=== PATIENT | female | born 1975 | race Caucasian/White ===

== ENCOUNTER 2023-07-18 00:36 | Emergency (ER) | payer OTHER, SELFPAY ==
[2023-07-18 00:40] VITALS: BP 117/84
--- NOTE | 2023-07-18 00:57 | ED.GENMED ---
History of Present Illness
General
Chief Complaint: Heart Rate Problem
Source: patient
Exam Limitations: none
Time Seen by Provider: 07/18/23 00:47
Travel History
Have you had any contact with someone who has COVID-19?: No
Do you have any symptoms of coronavirus? Fever > 100 degrees, chills, cough, shortness of breath, sore throat, loss of taste or smell, muscle aches, or headache?: No
History of Present Illness
History of Present Illness:
This is a 48 year old female that comes in with c/o feeling like her heart fluttering. State that at 10:30pm she laid down in bed. State that she felt like her heart was fluttering and she feels it just has not felt right since. State that she feels
like it is beating hard and her chest is vibrating. States that she did have a migraine earlier today and she took Excedrin. Denies any fever, chills, chest pain, SOB, abd pain, nausea, vomiting, diarrhea, headache now, dizziness, urinary burning.
Past History
Past History
ED Past Medical History: Psychiatric (Anxiety, Depression, ) and Other (thoracic aortic aneurysm, Migraines, )
ED Past Surgical History: Gynecological (Tubal ligation) and Other (Eye surgery, wisdom teeth removal)
Social History
Tobacco: Former smoker
Alcohol: Occasional
Drug: None
Personal:
Living: with family
Employment: Employed
Review of Systems
Review of Systems
All Other Systems: ROS reviewed and negative except as documented in HPI and ROS
Constitutional: Reports no symptoms; Denies fever or chills
EENT: Reports no symptoms
Respiratory: Denies cough or trouble breathing
Cardiac: Reports other (Feeling like her heart was fluttering and beating heavy); Denies chest pain
ABD/GI: Reports no symptoms; Denies abdominal pain, nausea, vomiting or diarrhea
: Reports no symptoms
Musculoskeletal: Reports no symptoms
Skin: Reports no symptoms
Neurological: Reports no symptoms; Denies dizzy or headache
Psychiatric: Reports no symptoms
Phy Exam
General Physical Exam
General Presentation: well appearing and no apparent distress
General age: appears stated age
General Skin: warm and dry
General Habitus: normal
General Mental: alert
General Hydration: dry mucous membranes
ENT Exam
ENT Exam: TM's normal, pharynx normal and neck supple
Eye Exam
Eye Exam: EOMI
Cardiovascular Exam
Cardiovascular Exam: no edema, normal peripheral pulses and tachycardia
Pulmonary Exam
Pulmonary Exam: lungs clear, no respiratory distress, no rales, chest non tender, no crackles, no rhonchi, no wheezing and no cough
Gastrointestinal Exam
Gastrointestinal Exam: normal bowel sounds, non tender, soft, no organomegaly, no pulsatile mass and non distended
Musculoskeletal Exam
Musculoskeletal Exam: full ROM and no edema
Skin Exam
Skin Exam: normal color, warm/dry, no rash and no petechia
Psychiatric Exam
Psychiatric Exam: normal mood/affect
Course
Orders/Labs/Results
Orders:
Orders
07/18/23 00:48
Electrocardiogram (*1) Urgent
Reason for Study: Tachycardia
EKG- Treatment ONCE
07/18/23 00:56
0.9% Sodium Chloride 500 ml [Nss] 500 ml IV BOLUS
07/18/23 01:03
Complete Blood Count/With Diff Urgent
Comprehensive Metabolic Panel Urgent
TSH Reflex To Free T4 Urgent
Troponin I Urgent
Abnormal Lab Results
07/18/23
01:03
WBC 13.9 H 10^3/uL
(4.8-10.8)
MCV 79.6 L fL
(81.0-99.0)
Potassium 3.2 L mmol/L
(3.5-5.1)
Glucose 104 H mg/dl
(70-99)
ALT 43 H U/L
(0-35)
07/18/23 01:03
07/18/23 01:03
Leukocytosis, Hypokalemia, Glucose nonfasting. ALT mildly elevated. Troponin <0.012. TSH normal at 4.50
Vital Signs
Initial and Last Documented VS:
Initial Vital Signs
Temp Pulse Resp BP Pulse Ox
97.6 F 123 18 117/84 98
07/18/23 00:40 07/18/23 00:40 07/18/23 00:40 07/18/23 00:40 07/18/23 00:40
Last Documented Vital Signs
Temp Pulse Resp BP Pulse Ox
97.6 F 100 23 101/77 97
07/18/23 00:40 07/18/23 01:45 07/18/23 01:45 07/18/23 01:43 07/18/23 01:45
MDM/Problems Addressed
Differential Diagnosis Includes:
Tachycardia, Atrial fib/flutter,
MDM/Problems Addressed:
This is a 48 year old female that comes in with c/o feeling like her heart was beating hard and fluttering. States that this started at 10:30pm when she went to lay down. States that her heart has just not felt right since this happened.
Will check labs, ECG and given IV fluids.
Back into see patient. Patient states that she is feeling better. Explained that her Troponin is normal and that her WBC are slightly elevated. This can happen with anxiety. Patient ALT is also slightly elevated. Patient to increase her water intake
to 8-8oz glasses daily. Follow up with the family doctor for further evaluation. Explained that they may want her to wear a Holter Monitor. TSH is pending. Will discharge patient home.
Chronic conditions affecting care:
NA
Acute Exacerbation and/or Progression of Chronic Illness:
NA
*Pulse Oximetry
Patient hypoxic: no
*EKG
Interpreted by ED Provider?: Yes
Heart Rate: 106
Rate: tachycardiac
Rhythm: sinus
[place]: normal axis
Interval: normal interval
QRS Pattern: normal QRS
Ischemia: non-specific ST changes (V2, V3, V4, V5, )
*Robotics Engineer Interpretation
Rate: tachycardiac
Heart Rate: 108
Rhythm: sinus tachycardia
*Critical Care Note
Total Time (30-74mins, 75-104mins- exclusive of procedures): Not Applicable
ED Attending Note
-
Portions of this chart may have been created with voice recognition software.� Occasional wrong word or��sound alike� substitutions may have occurred due to the inherent limitations of voice recognition software.
Discharge Plan
Departure
Patient Disposition: Home (Routine Discharge)
Date of Disposition: 07/18/23
Time of Disposition: 01:53
Patient with high blood pressure during this ER visit?: No
Condition: Good
Covid-19: Not Applicable
Discharge Problem:
Tachycardia
Instructions: Sinus Tachycardia (DC)
Prescriptions:
No Action
hydrochlorothiazide 50 mg Tablet
50 mg PO DAILY
irbesartan 150 mg Tablet
150 mg PO DAILY
cholecalciferol (vitamin D3) 50 mcg (2,000 unit) Tablet
50 mcg PO DAILY
Centrum Silver Women 8 mg iron-400 mcg-50 mcg Tablet
1 tab PO DAILY
Activity Restrictions/Additional Instructions:
As discussed, your blood work shows that your WBC's are slightly elevated. This can happen with Stress. Your one liver enzymes is slightly elevated and your Troponin is normal. Thyroid functions have also been done but these results are not back.
Please increase your water intake to 8-8oz glasses daily. Follow up with the family doctor as they may wish to have you wear a Holter Monitor. IF YOU HAVE CHEST PAIN, INCREASED HEART RATE OR YOU HAVE ANY OTHER CONCERNS PLEASE RETURN TO THE EMERGENCY
ROOM.
Interventions
Interventions:
*Risk Screen - Suicide Last Done: 07/18/23 01:02
*General Assessment Last Done: 07/18/23 01:02
*Neglect/Abuse Screening Last Done: 07/18/23 01:02
*ED COVID-19 Vaccine History Last Done: 07/18/23 01:02
ED- Cardiac Assessment Last Done: 07/18/23 01:02
ED- Pulmonary Assessment Last Done: 07/18/23 01:02
Discharge Date and Time
Print Language: SLOVAK
[2023-07-18 01:02] VITALS: BMI 31.3
[2023-07-18] MEDS: NSS 500 IV (01:08)
[2023-07-18 01:10] LABS: % Basophils 0.6 % (0-2); % Eosinophils 4.1 % (0-6); % Immature Granulocytes 0.8 % (0-0.5); % Monocytes 7.6 % (1.7-9.3); % Neutrophils 49.9 % (42.2-75.2); Absolute Basophils 0.1 10^3/uL (0-0.2); Absolute Eosinophils 0.6 10^3/uL (0-0.7); Absolute Immature Granulocytes 0.1 10^3/uL (0-0.05); Absolute Lymphocytes 5.2 10^3/uL (1.2-3.4); Absolute Monocytes 1.1 10^3/uL (0.1-0.6); Absolute Neutrophils 6.9 10^3/uL (1.4-6.5); Hematocrit 37.8 % (37.0-47.0); Hemoglobin 13.8 g/dL (12.0-16.0); Mean Corp Hgb Conc. 36.5 g/dL (33.0-37.0); Mean Corpuscular Hgb 29.1 pg (27.0-31.0); Mean Corpuscular Volume 79.6 fL (81.0-99.0); Mean Platelet Volume 8.9 fL (7.4-10.4); Nucleated Red Blood Cells % 0 %; Platelet Count 350 10^3/uL (130-400); Red Blood Cell Count 4.75 10^6/uL (4.20-5.40); Red Cell Dist. Width 12.3 % (11.5-14.5); White Blood Cell Count 13.9 10^3/uL (4.8-10.8)
[2023-07-18 01:35] LABS: ALT (SGPT) 43 U/L (0-35); AST (SGOT) 32 U/L (14-36); Albumin 4.4 g/dl (3.5-5.0); Alkaline Phosphatase 118 U/L (38-126); Blood Urea Nitrogen 16 mg/dl (7-17); Calcium 10.2 mg/dl (8.4-10.2); Carbon Dioxide 29 mmol/L (22-30); Chloride 102 mmol/L (98-107); Estimated Creatinine Clearance > 125 ml/min; Glucose 104 mg/dl (70-99); Potassium 3.2 mmol/L (3.5-5.1); Sodium 141 mmol/L (135-145); Total Bilirubin 0.3 mg/dl (0.2-1.3); Total Protein 7.4 g/dl (6.3-8.2); eGFR > 60.00
[2023-07-18 01:43] VITALS: BP 101/77
[2023-07-18 01:47] LABS: Troponin I < 0.012 ng/ml
== END 2023-07-18 02:21 | disposition home or self-care (01) ==
LOC: EMR 00:36
PROVIDERS: Clinical Nurse Specialist Family Health; EMERGENCY PHYSICIAN Emergency Medicine; FAMILY PHYSICIAN Family Medicine
DX: R00.0 Tachycardia, unspecified (principal); F41.8 Other specified anxiety disorders; I71.20 Thoracic aortic aneurysm, without rupture, unspecified; D72.829 Elevated white blood cell count, unspecified; E87.6 Hypokalemia; Z87.891 Personal history of nicotine dependence; Z98.51 Tubal ligation status
CPT/HCPCS: 99283; 96360; 80053; 84443; 84484; 85025; 93005